=== PATIENT | female | born 1980 | race African-American/Black ===

== ENCOUNTER 2016-12-13 14:59 | Emergency (ER) | payer OTHER ==
[2016-12-13 15:05] VITALS: BP 144/86
[2016-12-13] MEDS ORDERED: CYCL10TA2 PO (15:22)
--- NOTE | 2016-12-13 15:22 | PHYS DOC ---
Past Medical History Past Medical History: Hypertension Past Surgical History: Other Additional Past Surgical Histo: ABSCESSES REMOVED Alcohol Use: Occasionally Drug Use: None Adult General Chief Complaint Chief Complaint: BACK PAIN OR INJURY [facility] HPI Patient is a 36 year old female presents to the emergency department with a history of upper left back pain. Patient states she was sitting on the floor when she went to get up when she developed severe left upper back pain. Patient denies any numbness or tingling into her upper extremities or lower extremities. She denies any trauma injury to the back. She states that this happened approximately 2 hours ago. She states that feels like the pain is spasming. Denies any loss of bowel or bladder. Review of Systems Review of Systems Constitutional: Denies fever or chills [] Eyes: Denies change in visual acuity, redness, or eye pain [] HENT: Denies nasal congestion or sore throat [] Respiratory: Denies cough or shortness of breath [] Cardiovascular: No additional information not addressed in HPI [] GI: Denies abdominal pain, nausea, vomiting, bloody stools or diarrhea [] : Denies dysuria or hematuria [] Musculoskeletal: left upper back pain back pain or joint pain [] Integument: Denies rash or skin lesions [] Neurologic: Denies headache, focal weakness or sensory changes [] Allergies Allergies Allergies Coded Allergies Type Severity Reaction Last Updated Verified No Known Drug Allergies 12/13/16 No Physical Exam Physical Exam Constitutional: Well developed, well nourished, no acute distress, non-toxic appearance. [] HENT: Normocephalic, atraumatic, bilateral external ears normal, oropharynx moist, no oral exudates, nose normal. [] Eyes: PERRLA, EOMI, conjunctiva normal, no discharge. [] Neck: Normal range of motion, no tenderness, supple, no stridor. [] Cardiovascular:Heart rate regular rhythm, no murmur [] Lungs & Thorax: Bilateral breath sounds clear to auscultation [] Skin: Warm, dry, no erythema, no rash. [] Back: No cervical spine, thoracic spine tenderness, no crepitus, no deformities , no step-offs. Patient was noted to have tenderness in the left shoulder blade area. Extremities: No tenderness, no cyanosis, no clubbing, ROM intact, no edema. [] Neurologic: Alert and oriented X 3, normal motor function, normal sensory function, no focal deficits noted. [] Psychologic: Affect normal, judgement normal, mood normal. [] Current Patient Data Vital Signs Vital Signs Date Time Temp Pulse Resp B/P Pulse Ox O2 Delivery O2 Flow Rate FiO2 12/13/16 15:05 98.3 82 18 97 Room Air 98.3 EKG EKG [] Radiology/Procedures Radiology/Procedures [] Course & Med Decision Making Course & Med Decision Making Pertinent Labs and Imaging studies reviewed. (See chart for details) Activity as tolerated. Tylenol and ibuprofen for pain and discomfort. Patient will be provided with Flexeril at home in which she can take for muscle spasms. She was instructed this medication will cause drowsiness do not take any be alert and oriented. Ice packs on 20 minutes off 20 minutes several times a day. Patient agrees with discharge instructions treatment regimens and follow-up recommendations. Since symptoms to return back to emergency department as been provided. [] Dragon Disclaimer Dragon Disclaimer This electronic medical record was generated, in whole or in part, using a voice recognition dictation system. Departure Departure Impression: Primary Impression: Back pain Disposition: HOME, SELF-CARE Condition: STABLE Referrals: UNKNOWN PCP NAME (PCP) Patient Instructions: Back Pain, Adult, [id number] Additional Instructions: You have been evaluated for left upper back pain. Activity as tolerated. Ice packs to the area on 20 minutes off 20 minutes several times a day. Ibuprofen 800 mg every 8 hours with food stop taking few develop an upset stomach. Flexeril as prescribed. This medication will cause drowsiness do not take any be alert and oriented. Follow-up through primary care physician next 7-10 days continue your pain and discomfort. Return the emergency department sign symptoms of become worse. Scripts Cyclobenzaprine Hcl 10 Mg [id number] Mg PO TID #30 TAB Prov:KRYSTA KAPOOR NP 12/13/16 KRYSTA KAPOOR NP Dec 13, 2016 15:22
[2016-12-13] MEDS ORDERED: CYCLOBENZAPRINE 10 MG TABLET. PO ONE (15:30)
[2016-12-13] MEDS ORDERED: IBUPROFEN 800 MG TABLET. PO ONE (15:30)
== END 2016-12-13 15:33 | disposition home or self-care (01) ==
LOC: ER 14:59
DX: M54.6 Pain in thoracic spine (principal); I10 Essential (primary) hypertension
CPT/HCPCS: 99283